=== PATIENT | female | born 1945 | race Caucasian/White ===

== ENCOUNTER → 2017-10-24 | Outpatient (CLI) | payer OTHER, MEDICARE | LOC: BHLMT 11:30 | PROVIDERS: ATTEND Internal Medicine Cardiovascular Disease | DX: R07.9 Chest pain, unspecified (principal); R60.9 Edema, unspecified | CPT/HCPCS: 93306-PO ==

== ENCOUNTER → 2018-11-01 | Outpatient (CLI) | payer OTHER, MEDICARE | LOC: BHLMT 11:00 | PROVIDERS: ATTEND Internal Medicine Cardiovascular Disease | DX: R06.09 Other forms of dyspnea (principal) | CPT/HCPCS: 93017-PO ==

== ENCOUNTER → 2018-11-22 | Outpatient (CLI) | payer OTHER, MEDICARE | LOC: BHFA 14:00 | PROVIDERS: ATTEND Internal Medicine Cardiovascular Disease | DX: R94.39 Abnormal result of other cardiovascular function study (principal) | CPT/HCPCS: 78452; 93017; A9500; J2785 ==

== ENCOUNTER → 2018-12-11 | Day surgery (SDC) | payer OTHER, MEDICARE ==
[~2018-12-11] MED LIST: ASPIRIN EC 325 MG TAB PO ONE; ATORVASTATIN CALCIUM 20 MG TAB PO SCH; ATROPINE SULFATE 1 MG/10 ML SYR IVP PRN; DIAZEPAM 5 MG TAB ONE; DIAZEPAM 5 MG TAB PO ONE; FAMOTIDINE 20 MG TAB ONE; FAMOTIDINE 20 MG TAB PO ONE; HEPARIN 10,000 UNIT/10 ML MDV (1,000 UNIT/ML) ONE; HYDROCODONE/APAP 5/325 TAB PO PRN; IOPAMIDOL (ISOVUE-370) 150 ML BTL IV ONE; LIDOCAINE 1% 300 MG/30 ML SDV ONE; MIDAZOLAM 2 MG/2 ML VIAL ONE; NITROGLYCERIN 0.4 MG BTL SL PRN; NS 1,000 ML IV ONE; ONDANSETRON 4 MG/2 ML VIAL IVP PRN; VERAPAMIL 5 MG/2 ML VIAL ONE; diphenhydrAMINE 25 MG CAP PO ONE; fentaNYL 100 MCG/2 ML INJ ONE
[2018-12-11 09:46] LABS: PLATELET COUNT 290 10^3/uL (150-400)
[2018-12-11 09:55] LABS: INR 0.98 (0.83-1.16); PROTIME(PATIENT) 12.6 SEC (12.0-15.0)
--- NOTE | 2018-12-11 12:38 | PDDXCAT ---
Diagnostic Cath Note - . Date: 12/11/18 [employer]itness Floor Attendant: Aquiles Indication: other (Dyspnea on exertion as a possible anginal equivalent, CAD risk factors, and abnormal nuclear stress test.) - Procedure Access: right groin Procedure: left heart catheterization, coronary angiography, left ventriculogram - Materials Left Heart Cath size: 6F Left Heart Cath materials: standard multipack (JL4, JR4, pigtail) - Findings-Left Heart Catheterization LM: Normal. LAD: The mid-LAD contains a focal, somewhat complex but non flow limiting stenosis of 30-40%. The remainder of the LAD and its diagonal branches are normal. LCX: Minimal proximal irregularities less than 20%. The remainder of the circumflex and its obtuse marginal branches are normal in appearance. RCA: Minimal proximal irregularities less than 20%. The remainder of the RCA and its distal branches are normal. EDP: 24 mmHg LVEF: 60% Wall motion: No regional variation in contractility. Complications: None Estimated blood loss: <50ml Closure method: Angioseal Assessment: 1) Qsn-jyry-bwvddiab coronary atherosclerosis as described above. 2 ) Normal left ventricular systolic function. 3) Elevated left ventricular end- diastolic pressure. Plan: Medical management/secondary prevention.
--- NOTE | 2018-12-11 16:41 | CPEKG ---
Test Reason : OPEN Blood Pressure : / mmHG Vent. Rate : 074 BPM Atrial Rate : 074 BPM P-R Int : 141 ms QRS Dur : 080 ms QT Int : 380 ms P-R-T Axes : 056 -07 120 degrees QTc Int : 422 ms Sinus rhythm Probable left atrial enlargement Nonspecific T abnormalities, lateral leads Confirmed by Aniket Lubin ([id number]) on 12/11/2018 4:40:21 PM Referred By: Sen Kwan Confirmed By:Aniket Lubin
== END | disposition home or self-care (01) ==
LOC: FCATH 08:53
PROVIDERS: ATTEND Internal Medicine Interventional Cardiology
DX: R94.39 Abnormal result of other cardiovascular function study (principal); R06.09 Other forms of dyspnea; I25.10 Atherosclerotic heart disease of native coronary artery without angina pectoris; Z82.49 Family history of ischemic heart disease and other diseases of the circulatory system; E78.5 Hyperlipidemia, unspecified; I10 Essential (primary) hypertension; I34.1 Nonrheumatic mitral (valve) prolapse; M19.91 Primary osteoarthritis, unspecified site; Z96.653 Presence of artificial knee joint, bilateral
CPT/HCPCS: C1760; J1644; J2250; J3010; Q9967